=== PATIENT | female | born 2000 ===

== ENCOUNTER 2022-01-22 02:55 | Inpatient (IN) | payer BC, MEDICAID ==
[2022-01-22] MEDS ORDERED: Terbutaline 1 MG/ML SDV SUBCUT PRN (15:54)
[2022-01-22] MEDS ORDERED: Misoprostol 200 MCG Tab PO PRN (15:54)
[2022-01-22] MEDS ORDERED: Methylergonovine 0.2 MG/1 ML Amp IM PRN (15:54)
[2022-01-22] MEDS ORDERED: Lidocaine 1% 50 ML MDV INJECT PRN (15:54)
[2022-01-22] MEDS ORDERED: Tranexamic Acid 1,000 MG in Sodium Chloride 0.9% 100 ML IV PRN (15:54)
[2022-01-22] MEDS ORDERED: Butorphanol 1 MG/ML SDV IVPUSH PRN (15:54)
[2022-01-22] MEDS ORDERED: Sodium Chloride 0.9% 10 ML Syringe FLUSH PRN (15:54)
[2022-01-22] MEDS ORDERED: Water For Irrigation,Sterile 1,000 ML Container IRR PRN (15:54)
[2022-01-22] MEDS ORDERED: Sodium Chloride 0.9% 20 ML SDV IV PRN (15:54)
[2022-01-22] MEDS ORDERED: Sodium Chloride 0.9% 2.5 ML Syringe FLUSH PRN (15:54)
[2022-01-22] MEDS ORDERED: Carboprost Tromethamine 250 MCG/1 ML Amp IM PRN (15:54)
[2022-01-22] MEDS ORDERED: Oxytocin/0.9 % Sodium Chloride 30 UNIT/500 ML BAG IV SCH ×2 (16:00)
[2022-01-22] MEDS: Lactated Ringers 1,000 ML IV SCH ×2 (16:52→22:25)
[2022-01-22] MEDS ORDERED: Phenylephrine HCl In 0.9% NaCl 1 MG/10 ML Vial IVPUSH SCH (19:45)
[2022-01-22] MEDS ORDERED: Ropivacaine HCl/PF 400 MG in Premix Bag 1 BAG EPIDUR SCH (19:45)
[2022-01-22] MEDS ORDERED: ePHEDrine 50 MG/ML SDV IVPUSH PRN ×2 (19:45)
[2022-01-22] MEDS ORDERED: Lidocaine 2% with EPINEPHrine 1:200,000 20 ML SDV ONE (22:12)
[2022-01-22] MEDS ORDERED: Phenylephrine HCl In 0.9% NaCl 1 MG/10 ML Vial ONE (22:12)
[2022-01-23] MEDS: Lactated Ringers 1,000 ML IV SCH (01:26)
[2022-01-23] MEDS ORDERED: Docusate Sodium 100 MG Cap PO PRN (03:36)
[2022-01-23] MEDS ORDERED: Benzocaine/Menthol 20%-0.5% Spray 78 GM Cannister TOP PRN (03:36)
[2022-01-23] MEDS ORDERED: Witch Hazel Medicated Pads 40/Jar TOP PRN (03:36)
[2022-01-23] MEDS ORDERED: Bisacodyl 10 MG Supp RECTAL PRN (03:36)
[2022-01-23] MEDS ORDERED: Ibuprofen 400 MG Tab PO PRN (03:36)
[2022-01-23] MEDS ORDERED: oxyCODONE 5 MG Tab PO PRN (03:36)
[2022-01-23] MEDS ORDERED: Acetaminophen 500 MG Tab PO PRN (03:36)
[2022-01-23] MEDS ORDERED: Lanolin 100% Cream 7 GM Tube TOP PRN (03:36)
[2022-01-23] MEDS: Acetaminophen 500 MG Tab PO PRN ×3 (08:35→23:24)
[2022-01-23] MEDS: Ibuprofen 800 MG Tab PO PRN ×2 (08:36→18:17)
[2022-01-24] MEDS: Acetaminophen 500 MG Tab PO PRN (17:19)
== END 2022-01-24 20:45 | disposition home or self-care (01) | DRG 560 ==
LOC: MW.OB 02:55 → OBSVTOIN 01-23 02:55 → MW.OB 01-23 08:11
PROVIDERS: ADMIT Obstetrics & Gynecology; ATTEND Obstetrics & Gynecology
PROC: 10E0XZZ Delivery of Products of Conception, External Approach (ICD-10-PCS; principal; 2022-01-23)
PROC: 3E0R3BZ Introduction of Anesthetic Agent into Spinal Canal, Percutaneous Approach (ICD-10-PCS; 2022-01-23)
PROC: 00HU33Z Insertion of Infusion Device into Spinal Canal, Percutaneous Approach (ICD-10-PCS; 2022-01-23)
PROC: 10907ZC Drainage of Amniotic Fluid, Therapeutic from Products of Conception, Via Natural or Artificial Opening (ICD-10-PCS; 2022-01-23)
PROC: 0UQMXZZ Repair Vulva, External Approach (ICD-10-PCS; 2022-01-23)
PROC: 8E0ZXY6 Isolation (ICD-10-PCS; 2022-01-23)
DX: O36.5930 Maternal care for other known or suspected poor fetal growth, third trimester, not applicable or unspecified (principal); Z37.0 Single live birth; Z3A.38 38 weeks gestation of pregnancy; O41.03X0 Oligohydramnios, third trimester, not applicable or unspecified; O98.52 Other viral diseases complicating childbirth; U07.1 COVID-19
CPT/HCPCS: 36415; 51702; 59025; 59409; 82803; 85014; 85018; 85027; 86592; 86850; 86900; 86901; A9270-GY; J2590; J7120; U0002